=== PATIENT | female | born 1995 | race Two or more races ===

== ENCOUNTER 2024-04-12 07:17 | Emergency (ER) | payer OTHER ==
[~2024-04-12] VITALS: Ht 162.6 cm; Wt 60.0 kg
[2024-04-12 08:37] VITALS: BP 131/84; PULSE 89; RESP 20; TEMP 98.4; O2SAT 99
[2024-04-14 08:49] LABS: Hepatitis B Surface Antibody Positive (Negative)
[2024-04-14 09:01] LABS: Hepatitis B Surface Antigen Negative (Negative)
== END 2024-04-12 08:41 | disposition home or self-care (01) ==
LOC: ER 07:17
DX: S61.031A Puncture wound without foreign body of right thumb without damage to nail, initial encounter (principal); W46.0XXA Contact with hypodermic needle, initial encounter; Y93.89 Activity, other specified; Y92.89 Other specified places as the place of occurrence of the external cause; Y99.0 Civilian activity done for income or pay
CPT/HCPCS: 36415; 86703; 86706; 86803; 87340